=== PATIENT | male | born 1995 | race American Indian/Alaskan Native ===

== ENCOUNTER 2020-02-26 15:19 | Emergency (ER) | payer SELFPAY ==
[2020-02-26 15:34] VITALS: BP 129/81
--- NOTE | 2020-02-26 16:24 | XRay Report ---
CERVICAL SPINE 4 VIEWS INDICATION / CLINICAL INFORMATION: neck pain. COMPARISON: None available. FINDINGS: No fracture, subluxation or other significant abnormality. Signer Name: Issac Yu MD Signed: 02/26/2020 4:20 PM Workstation Name: [id number]
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
== END 2020-02-26 20:00 | disposition home or self-care (01) ==
LOC: ED 15:19
DX: S13.4XXA Sprain of ligaments of cervical spine, initial encounter (principal); J45.909 Unspecified asthma, uncomplicated; Z79.899 Other long term (current) drug therapy; V49.59XA Passenger injured in collision with other motor vehicles in traffic accident, initial encounter; Y92.410 Unspecified street and highway as the place of occurrence of the external cause; Y93.89 Activity, other specified; Y99.8 Other external cause status
CPT/HCPCS: 72040